=== PATIENT | male | born 1995 | race African-American/Black ===

== ENCOUNTER 2019-05-23 05:52 | Emergency (ER) | payer BC ==
[~2019-05-23] VITALS: Ht 185.4 cm; Wt 72.6 kg
[2019-05-23 06:00] VITALS: BP 115/70
--- NOTE | 2019-05-23 06:00 | NUR ---
ED Nurse Note: Pt ambulated to ED from home presenting with laceration to top of L hand and thumb. Minimal bleeding, pt reports pain 5/10. VSS Pt A&Ox4
--- NOTE | 2019-05-23 06:08 | Emergency Room Report ---
History of Present Illness General Chief Complaint: Laceration Source: Patient Present Illness [facility] This is a 23-year-old male with no past medical history. He is right-hand dominant. He presents with chief complaint of a laceration to his left thumb. He was helping his brother move and was staying at the house. He got up to prepare some food to monitor on the light. He tripped and fell and he grabbed onto a drawer. Either a plate or knife fell on him and sustained a laceration to his left thumb. This occurred just prior to arrival. Denies any bleeding. No fever chills but no nausea no vomiting. No other injury. Mild pain. Allergies: Coded Allergies: No Known Allergies (Unverified , 05/23/19) Patient History Past Medical History: see triage record, old chart reviewed Past Surgical History: none Pertinent Family History: none Social History: Denies: smoking Immunizations: UTD Reviewed Nursing Documentation: PMH: Agreed; PSxH: Agreed Nursing Documentation-PMH Past Medical History: No History, Except For Hx Asthma: Yes History Of Psychiatric Problem: Yes - BIPOLAR Review of Systems Eye: Denies: eye pain, blurred vision ENT: Denies: ear pain, nose congestion, throat swelling Respiratory: Denies: cough, shortness of breath Cardiovascular: Denies: chest pain, palpitations Gastrointestinal: Denies: abdominal pain, diarrhea, nausea, vomiting Musculoskeletal: Denies: back pain, joint pain Skin: Denies: rash Neurological: Denies: headache, numbness Endocrine: Denies: increased thirst, increased urine Hematologic/Lymphatic: Denies: easy bruising All Other Systems: negative except mentioned in HPI Physical Exam Vital Signs Date Time Temp Pulse Resp B/P (MAP) Pulse Ox O2 Delivery O2 Flow Rate FiO2 05/23/19 05:53 97.7 66 18 115/70 (85) 98 Room Air Vitals normal Sp02 EP Interpretation: reviewed, normal General Appearance: well appearing, no apparent distress, alert Head: normocephalic, atraumatic Eyes: bilateral eye PERRL, bilateral eye EOMI ENT: hearing grossly normal, normal pharynx Neck: full range of motion, supple, no meningismus Respiratory: chest non-tender, lungs clear, normal breath sounds Cardiovascular #1: regular rate, rhythm, no murmur Gastrointestinal: normal bowel sounds, non tender, no mass, no organomegaly, no bruit, non-distended Musculoskeletal: back normal, gait/station normal, normal range of motion, other - Left thumb: On the dorsum of the thumb over the MCP joint, there is a 5 cm laceration. He has partial laceration of the tendon. He has good range of motion of the thumb however. Good opposition. Slight decrease in sensation. No foreign body. No active bleeding. Psychiatric: mood/affect normal Procedures Splinting Splinting : Consent: Verbal Location: left thumb Pre-Made Type: velcro Splint: thumb spica Pre-Proc Neuro Vasc Exam: normal Patient Tolerated: Well Complications: None Laceration/Wound Repair Laceration/Wound Repair : Consent: Verbal Wound Location: upper extremity Wound's Depth, Shape: into muscle, linear Wound Length (cm): 5 Wound Explored: clean Irrigated w/ Saline (ccs): 2000 Betadine Prep?: Yes Anesthesia: 1% Lidocaine Volume Anesthetic (ccs): 5 Wound Repaired With: sutures Suture Size/Type: 4:0, proline Number of Sutures: 9 Sling Applied?: Yes Patient Tolerated: Well Complications: None Medical Decision Making Diagnostic Impression: Primary Impression: Laceration of left thumb with tendon involvement Qualified Codes: S61.012A - Laceration without foreign body of left thumb without damage to nail, initial encounter ER Course Patient presents with left thumb laceration. It involves the tendon. Once he was in exercise and we was irrigated. There is evidence of tendon laceration to the extensor pollicis brevis. I could not find the end of the tendon even when I range it through the motion. He is unable to extend his thumb at the tip. Went to patient that this increases risk for disability. He need to see a hand surgeon wants to get back to [place]. Also increased risk for infection. Last Vital Signs Date Time Temp Pulse Resp B/P (MAP) Pulse Ox O2 Delivery O2 Flow Rate FiO2 05/23/19 05:53 97.7 66 18 115/70 (85) 98 Room Air Status: improved Disposition: HOME, SELF-CARE Condition: Stable Scripts Ibuprofen* (MOTRIN*) 600 Mg Tablet 600 MG ORAL THREE TIMES A DAY, #30 TAB 0 Refills Prov: Beto Ann MD 05/23/19 Cephalexin* (KEFLEX*) 500 Mg Capsule 500 MG ORAL TID, #21 CAP Prov: Beto Ann MD 05/23/19 Patient Instructions: Laceration Care, Adult Additional Instructions: Keep wound clean. Apply antibiotic ointment. Wear splint. Follow-up with your doctor within a week. You will need referral to see Hand surgeon/ orthopedic doctor. This is because you have a tendon laceration. Sutures out in 10 to 14 days. Return if symptoms worsen. Beto Ann MD May 23, 2019 06:08
[2019-05-23] MEDS ORDERED: CEPHALEXIN500 MG ORAL (06:47)
[2019-05-23] MEDS ORDERED: IBUPROFEN600 MG ORAL (06:47)
[2019-05-23 06:53] VITALS: BP 115/70
--- NOTE | 2019-05-23 06:53 | NUR ---
ER DISCHARGE NOTE: Patient is cleared to be discharged per ERMD, pt is aox4, on room air, with stable vital signs. pt was given dc and prescription instructions, pt was able to verbalize understanding, pt id band removed. pt is able to ambulate with steady gait. pt took all belongings. Pt tolerated 9 stitches well.
== END 2019-05-23 06:53 | disposition home or self-care (01) ==
LOC: EMR 06:30
DX: S66.222A Laceration of extensor muscle, fascia and tendon of left thumb at wrist and hand level, initial encounter (principal); J45.909 Unspecified asthma, uncomplicated; F31.9 Bipolar disorder, unspecified; W26.9XXA Contact with unspecified sharp object(s), initial encounter; Y93.G1 Activity, food preparation and clean up; Y92.000 Kitchen of unspecified non-institutional (private) residence as the place of occurrence of the external cause
CPT/HCPCS: 29130; 99283